=== PATIENT | male | born 2005 | race Caucasian/White ===

== ENCOUNTER 2024-04-01 14:56 | Outpatient (REF) | payer SELFPAY ==
[2024-04-01 16:09] LABS: Abs Immature Grans 0.01 10^3/uL (0.0-0.06); Absolute Basophil Count 0.04 10^3/uL (0.0-0.2); Absolute Eosinophil Count 0.02 10^3/uL (0.0-0.7); Absolute Lymphocyte Count 1.42 10^3/uL (1.2-3.4); Absolute Monocyte Count 0.48 10^3/uL (0.1-0.8); Absolute Neutrophil Count 3.36 10^3/uL (1.2-6.7); Basophils % 0.8 %; Eosinophils % 0.4 %; HCT 46.6 % (40.0-50.0); HGB 15.4 g/dL (13.5-17.5); Immature Grans % 0.2 %; Lymphocytes % 26.6 %; MCH 29.2 pg (27.0-33.0); MCV 88 fL (80-95); MPV 10.7 fL (8.0-11.0); Platelet Count 284 10^3/uL (130-400); RBC 5.27 10^6/uL (4.36-5.78); RDW 12.6 % (11.8-14.1); RDW-SD 41.3 fL; WBC 5.33 10^3/uL (4.4-10.8)
[2024-04-01 16:21] LABS: ALT 40 U/L (16-63); AST 31 U/L (15-37); Albumin 4.8 g/dL (3.4-5.0); Alkaline Phosphatase 108 U/L (46-116); Anion Gap 10.1 mmol/L (3-11); BUN 9 mg/dL (7-18); Bilirubin, Total 1.1 mg/dL (0.2-1.0); CO2 25.9 mmol/L (21.0-32.0); CREATININE 0.7 mg/dL (0.70-1.30); Calcium 9.3 mg/dL (8.5-10.1); Chloride 106 mmol/L (98-107); Estimated GFR 136.12 (mL/min/1.73m2); Glucose 100 mg/dL (74-106); Lipase 28 U/L (16-77); Potassium 4.3 mmol/L (3.5-5.1); Sodium 142 mmol/L (136-145); Total Protein 7.5 g/dL (6.4-8.2)
== END 2024-04-01 14:57 | disposition home or self-care (01) ==
LOC: NCHCN 14:56
PROVIDERS: Visit Provider Emergency Medicine Emergency Medical Services
DX: R11.0 Nausea (principal)
CPT/HCPCS: 80053; 83690; 85025

== ENCOUNTER 2024-04-18 05:40 | Emergency (ER) | payer MEDICAID, SELFPAY ==
[2024-04-18 05:46] VITALS: BP 135/77; PULSE 74; RESP 21; TEMP 36.7; O2SAT 98
--- NOTE | 2024-04-18 06:03 | W.ED.GENAD ---
Discharge Plan Discharge Details Chief Complaint: PsychEval Clinical Impression: Depression ED Provider: Reji Neal Home Meds and New Rx's Prescriptions: No Action No Known Home Meds HPI General Date/Time Provider Initiated Documentation: 04/18/24 05:43. HPI Narrative: This is a 18-year-old male with a past medical history of depression who presents today for evaluation of depression and suicidality. Patient states that for the last 3 he has felt quite a bit more depressed, he has had thoughts of trying to end his life, but he does not have a plan how. One of his coping mechanisms is to just try to stop thinking about it, and this has been helping but has been getting harder and harder. He does occasionally see a counselor. He denies taking any medications. He denies fever or chills, vomiting or diarrhea. He denies auditory hallucinations. He does admit to occasionally seeing tall shadowy figures in the corner of his vision, and states that this has been going on for quite some time. No other complaints at this time. No other modifying factors. He has not been admitted for suicidality in the past. He denies any homicidal ideations. Related Data Home Medications Medication Instructions Recorded Confirmed Unknown [No Known Home Meds] 04/18/24 04/18/24 Allergies Allergy/AdvReac Type Severity Reaction Status Date / Time No Known Allergies Allergy Unverified 04/18/24 05:49 General Stated Complaint: PsychEval MICHAEL: 2 Review of Systems All systems reviewed & are unremarkable except as noted in HPI and below Exam Narrative Exam Narrative: 1.Const: Well-nourished, Well-developed, appearing stated age 2.Eyes: PERRL, no conjunctival injection, and symmetrical lids. 3.ENT: Atraumatic external nose and ears. Moist MM. Neck: Symmetric, trachea midline, No thyromegaly. 4.CVS: +S1/S2, No murmurs or gallops. Peripheral pulses 2+ and equal in all extremities. Brisk capillary refill in all extremities. 5.RESP: Unlabored respiratory effort. Clear to auscultation bilaterally. No wheezes rales or rhonchi 6.GI: Soft, Nontender/Nondistended, No hepatosplenomegaly. No guarding or rebound. 7.MSK: Normocephalic/Atraumatic, Extremities w/o deformity or ttp No cyanosis or clubbing, Normal movement of all extremities 8.Skin: Warm, Dry. No rashes or lesions. 9.Neuro: correctional counselor/case manager II-XII grossly intact. Sensation grossly intact, no focal neurologic deficits. 10.Psych: (AAO) x3. Appropriate mood and affect Course Vital Signs Vital signs: Vital Signs Temperature 37.1 C 04/18/24 05:45 Pulse 84 04/18/24 05:45 Respiratory Rate 20 04/18/24 05:45 Blood Pressure 115/66 04/18/24 05:45 Pulse Oximetry 94 04/18/24 05:45 Temperature 36.7 C 04/18/24 05:46 Temperature Source Temporal Artery Scan 04/18/24 05:46 Pulse 74 04/18/24 05:46 Respiratory Rate 21 04/18/24 05:46 Respiratory Effort Normal, Non-Labored 04/18/24 05:49 Blood Pressure 135/77 04/18/24 05:46 Blood Pressure Position Sitting 04/18/24 05:46 Pulse Oximetry 98 04/18/24 05:46 Oxygen Delivery Method Room Air 04/18/24 05:46 Oxygen Flow Rate 0 04/18/24 05:46 Pain Level 10 04/18/24 05:45 Medical Decision Making This is a 18-year-old male with a past medical history of depression who presents today for evaluation of depression and suicidality. Patient states that for the last 3 he has felt quite a bit more depressed, he has had thoughts of trying to end his life, but he does not have a plan how. One of his coping mechanisms is to just try to stop thinking about it, and this has been helping but has been getting harder and harder. He does occasionally see a counselor. He denies taking any medications. He denies fever or chills, vomiting or diarrhea. He denies auditory hallucinations. He does admit to occasionally seeing tall shadowy figures in the corner of his vision, and states that this has been going on for quite some time. No other complaints at this time. No other modifying factors. He has not been admitted for suicidality in the past. He denies any homicidal ideations. He does admit to nightly marijuana use to help with sleep and depression. Exam demonstrates well-appearing male, no acute abnormalities. Family members at bedside. Will perform medical screening, unless the help of our mental health advocates, monitor closely and reassess. With no active suicidal plan, I do not feel the patient needs to be a one-to-one at this time. 7:04 AM Patient has been seen and assessed by mental health. Patient agrees to inpatient treatment voluntarily. Patient will be transition to zone B, pending placement to psychiatric facility. Patient will be signed out pending final disposition. Quality:SDOH Health Related Social Needs: Health related social needs risk of homeless Health related social needs details Currently residing w/ cousin in Uncle's house, but house is having to be sold [facility] All Active Problems (Updated 04/18/24 @ 07:05 by Reji Neal DO) Depression (Chronic) Social History Smoking/Tobacco Use Status: Never Smoking risk assessment performed?: Yes Alcohol Intake: never Drug use: Daily Substance use type: marijuana Housing: other Do you feel safe at home: Yes Do you feel safe in your relationship?: Yes
[2024-04-18 06:22] LABS: Abs Immature Grans 0.01 10^3/uL (0.0-0.06); Absolute Basophil Count 0.04 10^3/uL (0.0-0.2); Absolute Eosinophil Count 0.06 10^3/uL (0.0-0.7); Absolute Lymphocyte Count 1.66 10^3/uL (1.2-3.4); Absolute Monocyte Count 0.41 10^3/uL (0.1-0.8); Absolute Neutrophil Count 3.43 10^3/uL (1.2-6.7); Basophils % 0.7 %; Eosinophils % 1.1 %; HCT 47.2 % (40.0-50.0); HGB 16.1 g/dL (13.5-17.5); Immature Grans % 0.2 %; Lymphocytes % 29.6 %; MCH 29.7 pg (27.0-33.0); MCHC 34.1 % (32.0-36.0); MCV 87 fL (80-95); MPV 9.9 fL (8.0-11.0); Monocytes % 7.3 %; Neutrophils % 61.1 %; Platelet Count 280 10^3/uL (130-400); RBC 5.42 10^6/uL (4.36-5.78); RDW 12.9 % (11.8-14.1); RDW-SD 41.1 fL; WBC 5.61 10^3/uL (4.4-10.8)
[2024-04-18 06:47] LABS: ALT 34 U/L (16-63); AST 14 U/L (15-37); Albumin 4.6 g/dL (3.4-5.0); Alkaline Phosphatase 109 U/L (46-116); Anion Gap 9.1 mmol/L (3-11); BUN 11 mg/dL (7-18); Bilirubin, Total 1.2 mg/dL (0.2-1.0); CO2 26.9 mmol/L (21.0-32.0); CREATININE 0.9 mg/dL (0.70-1.30); Calcium 9.3 mg/dL (8.5-10.1); Chloride 106 mmol/L (98-107); Estimated GFR 126.17 (mL/min/1.73m2); Glucose 96 mg/dL (74-106); Potassium 3.7 mmol/L (3.5-5.1); Sodium 142 mmol/L (136-145); TSH (W/Ref FT4) 1.55 uIU/mL (0.52-4.13); Total Protein 7.6 g/dL (6.4-8.2)
[2024-04-18 06:48] LABS: Acetaminophen < 2 ug/mL (10-30); ETHANOL BLOOD < 3.0 mg/dL (<10); Salicylate < 2.8 mg/dL (<2.8)
[2024-04-18 08:54] LABS: *AMPHETAMINES SCREEN URINE Negative (Negative); *BARBITURATES SCREEN URINE Negative (Negative); *BENZODIAZEPINES SCREEN URINE Negative (Negative); Cannabinoids THC Positive (Negative); Cocaine Screen,Urine Negative (Negative); METHADONE URINE SCREEN Negative (Negative); OPIATES URINE SCREEN Negative (Negative)
[2024-04-18 08:58] LABS: Tricyclic Antidepressants Negative (Negative)
--- NOTE | 2024-04-18 09:08 | CMSP_ITS ---
Date of service: 04/18/24 Time of Service: 09:08 Care Management Safety Plan Status Status: Voluntary Reason for Wait Reason for Wait: Inpatient Admission Safety Plan Safety Plan: VOLUNTARY FOR INPATIENT PSYCHIATRIC STABILIZATION.? Patient is appropriate in all interactions since arriving at [facility]; Pt has demonstrated appropriate coping and communication skills, has articulated his needs and concerns and is fully engaged during staff interactions. Safety plan has been established with patient, and care team, to adhere to patient goals, identify restrictions based on behavioral status, address nutrition, and determine allowed personal belongings, tools for hygiene and personal care. Determine level of activity including ambulation, level of supervision, visitors, and determine privileges based on behaviors and level of engagement by pt. Adrian is a 18 year old make that present to the ED with Depression and SI. He is seeking voluntary inpatient treatment at an accepting facility. [facility] are interested, pending insurance verification. Unfortunately, Adrian has been employed for 2 weeks and does not have insurance. CHW at [facility] has supported Adrian with an expedited medicaid application through [employer]. Discharge delay is anticipated while medicaid is pending. SAFETY PLAN: 1. Will remain on suicide precautions, in paper clothes 2. Will remain in Zone B under direct supervision of one-on-one staff at all times provided by [employer]; TANYA, HOLTER TECHNICIAN garbage collection supervisor. 3. May have paper cups, plates, finger foods as well as a cardboard spoon with which to eat meals. 4. Follow [facility] Management of the Admitted Behavioral Health Patient policy. 5. Shower available in Zone B without restriction. 6. Personal belongings-soft items permitted at RN discretion. 7. Visitors- parents permitted, at RN discretion. 8. Activities: soft cart items approved per RN discretion. 9.? Bathroom available in Zone B without restriction. 10. Phone: incoming/outgoing calls limited to [facility] cordless phone at RN discretion. Due to VOLUNTARY status, if patient wishes to leave [facility], staff will contact [facility] Crisis Screener ([phone]) and [facility] ([phone]) as soon as possible. In the event of elopement, notify [facility] Police ([phone]). Patient is currently voluntarily at [facility] and seeking inpatient admission when a bed becomes available. [facility] Frontline Garbage Collector Supervisor will continue seeking placement. Please contact the [facility] ([phone]) and [facility] Garbage Collector Supervisor ([phone]) for any needed changes in the Safety Plan. Safety plan has been provided to interdepartmental care team.
--- NOTE | 2024-04-18 10:54 | MHPN_ITS ---
Date of service: 04/18/24 Time of Service: 10:54 Mental Health Emergency Note Release [facility] release signed:: Yes Reason for Visit The client is not known to [facility] and has agreed to partake in an intake today. He was initially screened by [facility] early tis am. This will be the client's first hospitalization. The client presented with an increase in symptoms relating to a possible depression diagnosis. He is also experiencing SI although not at the time of the assessment he noted if he were to be alone for to long of a time he would go back to having those thoughts. In the last 2 weeks has the pt presented for ES prior to today?: Unknown Client Information Client is: New Impression The client reported that he has made plans in the past to by suicide however attempts have not ever been made. The client participated in all screening tools to include the CSSRS however, this clinician is not CAM's trained so that treatment could not be offered during this assessment. The client will be meeting with [facility] today to get set up with Medicaid as he is currently self pay. The client is a single, male who is currently residing with family in the area after he lost both of his parents. He reported that he feels guilty about his mother's . He uses He/Hi pronouns and is currently unemployed and has no treatment providers in the area as he came up for his parent's services. All underrepresented categories were honored during this assessment. The client presents sitting on his bed in Zone B. In the room with him are JONATAN Ram and Dilma. This clinician participated via zoom due to training responsibilities today. The client is soft spoken and makes fair eye contact. He has shoulder length brown wavy hair. He presents with a sad affect and reports that he struggles to talk in detail about his feelings. He reported what little sleep he got t his am was not restful. He reported that he is hungry but did not eat breakfast this am. He shared I'm depressed and don't want to be here anymore. He has been reading [employer] book as a distraction. Plan/Disposition Recommended Disposition: Hospitalization facilities contacted. Plan[facility] patient however, they both require insurance before they can accept him. This clinician outreached to [facility] in care management to connect him with [facility] to get that set up. The client will remain at [facility] pending acceptance to a treating hospital. Person reported agreement to plan: Yes Facilities contacted if Applicable [facility] Not [facility], (waiting on insurance ) Other [facility] Not accepted, No bed available Not accepted, (Did not receive referral will be resent. ) Other, [facility] Not accepted, No bed available [facility] Not accepted, (waiting on insurance ) Other Reports/communication Outcome discussed with: ED/Personnel
--- NOTE | 2024-04-18 16:53 | ED.PROG_ITS ---
Date of service: 04/18/24 Time of Service: 16:53 Medical Decision Making Care signed out by Dr. Neal earlier today. Please see his documentation regarding initial ED presentation course. Briefly this 18-year-old male is here voluntarily for suicidal ideation. He has been medically screened and cleared. He is awaiting inpatient psychiatric treatment placement. No concerns during shift. Nursing notes [facility] may potentially accept patient in transfer. Awaiting doc to doc. Quality:SDOH Health Related Social Needs: Health related social needs risk of homeless Health related social needs details Currently residing w/ cousin in Uncle's house, but house is having to be sold Sign Out Sign Out Data: Sign Out Comment: Depression, suicidality without a plan. Here voluntarily, awaiting placement Last updated by Reji Neal DO at 04/18/24 07:20 Discharge Plan Discharge Details Chief Complaint: PsychEval Clinical Impression: Depression Primary Care Provider: None,None ED Provider: Gallito Hunter Home Meds and New Rx's Prescriptions: No Action No Known Home Meds
--- NOTE | 2024-04-18 17:41 | W.EDPROG ---
Date of service: 04/18/24 Time of Service: 17:41 Medical Decision Making 18-year-old male here for voluntarily for depression and thoughts of self-harm. No issues reported per prior shift. Currently calm without new acute complaints. Will continue to observe until safe disposition found Quality:SDOH Health Related Social Needs: Health related social needs risk of homeless Health related social needs details Currently residing w/ cousin in Uncle's house, but house is having to be sold Sign Out Sign Out Data: Sign Out Comment: Depression, suicidality without a plan. Here voluntarily, awaiting placement Last updated by Reji Neal DO at 04/18/24 07:20 Sign Out Comment: Patient is here voluntarily for suicidality. Potential accepting facility [facility] identified. Awaiting doc to doc. Last updated by Gallito Hunter MD at 04/18/24 17:07 Discharge Plan Discharge Details Chief Complaint: PsychEval Clinical Impression: Depression Primary Care Provider: None,None ED Provider: Kin Siddiqui Home Meds and New Rx's Prescriptions: No Action No Known Home Meds
--- NOTE | 2024-04-19 09:26 | NUR.NOTE ---
Addendum entered by Daisy Valle 04/19/24 09:56: Accessed chart a second time, Deidra Carmichael called asking for the time of transfer. Original Note: [facility] called asking if this patient was still in need of admission. Accessed chart determined that patient was transferred to [facility]. Nursing Note:
== END 2024-04-18 19:05 ==
PROVIDERS: Student in an Organized Health Care Education/Training Program; Emergency Provider Emergency Medicine
DX: F32.A Depression, unspecified (principal); R45.851 Suicidal ideations
CPT/HCPCS: 00123; 80053; 80307; 99285; 80320; 80329; 84443; 85025

== ENCOUNTER 2024-11-25 04:00 | Outpatient (CLI) | payer MEDICAID, SELFPAY ==
[2024-11-25 14:10] LABS: Anion Gap 4.5 mmol/L (3-11); BUN 12 mg/dL (7-18); CO2 32.5 mmol/L (21.0-32.0); CREATININE 0.9 mg/dL (0.70-1.30); Chloride 107 mmol/L (98-107); Estimated GFR 125.39 (mL/min/1.73m2); Glucose 84 mg/dL (74-106); Sodium 144 mmol/L (136-145)
[2024-11-25 14:17] LABS: Calcium 9.3 mg/dL (8.5-10.1)
== END 2024-11-25 04:01 | disposition home or self-care (01) ==
LOC: LBO 04:00
PROVIDERS: PCP Nurse Practitioner Family; Visit Provider Physician Assistant
DX: F64.9 Gender identity disorder, unspecified (principal)
CPT/HCPCS: 36415; 80048

== ENCOUNTER 2025-01-14 03:45 | Outpatient (CLI) | payer MEDICAID, SELFPAY ==
[2025-01-14 15:10] LABS: Anion Gap 9.3 mmol/L; BUN 10 mg/dL; CO2 26.7 mmol/L; Calcium 9.4 mg/dL; Chloride 109 mmol/L; Glucose 86 mg/dL; Potassium 3.8 mmol/L; Sodium 145 mmol/L
[2025-01-14 22:25] LABS: Estradiol 51 pg/mL
[2025-01-20 14:10] LABS: Testosterone, Total 494 ng/dL
== END 2025-01-14 03:46 | disposition home or self-care (01) ==
LOC: LBO 03:45
PROVIDERS: PCP Nurse Practitioner Family; Visit Provider Physician Assistant
DX: F64.9 Gender identity disorder, unspecified (principal)
CPT/HCPCS: 36415; 80048; 84403; 82670

== ENCOUNTER 2025-04-14 02:09 | Outpatient (CLI) | payer MEDICAID, SELFPAY ==
[2025-04-14 14:00] LABS: Anion Gap 7.8 mmol/L; BUN 17 mg/dL; CO2 26.2 mmol/L; CREATININE 0.6 mg/dL; Calcium 9.1 mg/dL; Chloride 105 mmol/L; Glucose 100 mg/dL; Potassium 3.7 mmol/L; Sodium 139 mmol/L
[2025-04-14 22:44] LABS: Estradiol 69 pg/mL
[2025-04-18 13:34] LABS: Testosterone, Total 210 ng/dL
== END 2025-04-14 02:10 | disposition home or self-care (01) ==
PROVIDERS: PCP Nurse Practitioner Family; Visit Provider Physician Assistant
DX: F64.9 Gender identity disorder, unspecified (principal)
CPT/HCPCS: 36415; 80048; 84403; 82670

== ENCOUNTER 2025-06-18 17:16 | Emergency (ER) | payer MEDICAID, SELFPAY ==
[2025-06-18 17:18] VITALS: BP 155/91; PULSE 86; RESP 16; TEMP 208.4; TEMP 98; O2SAT 97
[2025-06-18 17:36] VITALS: BP 155/91; PULSE 86; RESP 16; TEMP 208.4; TEMP 98; O2SAT 97
[2025-06-18] MEDS: Prochlorperazine 10 MG TAB PO (17:41)
[2025-06-18] MEDS: Normal Saline 1,000 ML 1000 ML IV (18:44)
[2025-06-18] MEDS: diphenhydrAMINE 50 MG/ML VIAL 25 MG IVP (18:45)
[2025-06-18] MEDS: Ondansetron 4 MG/2 ML VIAL IVP (18:45)
--- NOTE | 2025-06-18 19:09 | W.ED.GENAD ---
Discharge Plan Disposition Patient Disposition: Home Condition: Stable Discharge Details Clinical Impression: Nausea & vomiting Primary Care Provider: Marcy Segovia ED Provider: Radha Yan Home Meds and New Rx's Prescriptions: New ondansetron 4 mg tablet,disintegrating 4 mg PO TID PRN3 Days Qty: 10 0RF Continued naproxen 250 mg tablet 250 mg PO BID PRN spironolactone 100 mg tablet 200 mg PO DAILY estradiol 2 mg tablet 6 mg PO DAILY sertraline 100 mg tablet 100 mg PO DAILY Qty: 90 1RF hydroxyzine HCl 25 mg tablet See Rx Instructions PO QHS PRN (Reason: insomnia) Qty: 180 1RF Rx Instructions: Take 1 - 2 tabs orally every day at bedtime PRN; Discharge Instructions Instructions: Nausea and Vomiting, Adult ED Additional Instructions: take zofran as needed for nausea and vomiting popsicles, jello, broth, gingerale bland food such as toast and bananas when able to tolerate clear liquids return with persistent, new, or worsening symptoms Referrals: Marcy Segovia NP [Primary Care Provider, Medicine] Discharge Data Discharge Date/Time-TO BE ENTERED AT DEPARTURE: 06/18/25 20:01 HPI General Date/Time Provider Initiated Documentation: 06/18/25 17:27. HPI Narrative: 19-year-old transgender female with nausea and vomiting after dental extraction with Novocain. Suspected adverse reaction to lidocaine derivatives. Vomited once since onset. Extraction once today had a similar episode several weeks ago when she had another extraction denies any blood in vomitus denies any diarrhea Related Data Home Medications ?Medication ?Instructions ?Recorded ?Confirmed naproxen 250 mg tablet 250 mg PO BID PRN 06/10/24 06/18/25 hydroxyzine HCl 25 mg tablet See Rx Instructions PO QHS PRN 12/25/24 06/18/25 insomnia #180 tabs spironolactone 100 mg tablet 200 mg PO DAILY 02/12/25 06/18/25 sertraline 100 mg tablet 100 mg PO DAILY #90 tabs 02/26/25 06/18/25 estradiol 2 mg tablet 6 mg PO DAILY 04/28/25 06/18/25 ondansetron 4 mg disintegrating 4 mg PO TID PRN 3 days #10 tabs 06/18/25 tablet Previous Rx's ?Medication ?Instructions ?Recorded hydroxyzine HCl 25 mg tablet See Rx Instructions PO QHS PRN 12/25/24 insomnia #180 tabs sertraline 100 mg tablet 100 mg PO DAILY #90 tabs 02/26/25 ondansetron 4 mg disintegrating 4 mg PO TID PRN 3 days #10 tabs 06/18/25 tablet Allergies Allergy/AdvReac Type Severity Reaction Status Date / Time procaine (From Novocain) AdvReac Mild Nausea Verified 06/18/25 17:24 General Stated Complaint: DentalOral MICHAEL: 3 Exam Narrative Exam Narrative: No acute distress, alert and oriented. Dental extraction site benign. Oropharynx patent, uvula midline, lungs clear, no rashes or lesions. No evidence of anaphylaxis or significant allergic reaction. Course Vital Signs Vital signs: Vital Signs Temperature 98.0 C 06/18/25 17:18 Pulse 86 06/18/25 17:18 Respiratory Rate 16 06/18/25 17:18 Blood Pressure 155/91 06/18/25 17:18 Pulse Oximetry 97 06/18/25 17:18 Temperature 98.0 C 06/18/25 17:36 Temperature Source Oral 06/18/25 17:18 Pulse 86 06/18/25 17:36 Respiratory Rate 16 06/18/25 17:36 Blood Pressure 155/91 06/18/25 17:36 Blood Pressure Position Sitting 06/18/25 17:36 Pulse Oximetry 97 06/18/25 17:36 Oxygen Delivery Method Room Air 06/18/25 17:18 Oxygen Flow Rate 0 06/18/25 17:18 Medical Decision Making Initial Assessment: 19-year-old transgender female with nausea and vomiting post dental extraction with Novocain. Possible adverse reaction to lidocaine derivatives. ED Course: - Administered oral Compazine initially. - Episode of vomiting after oral Compazine. - Administered i.v. Zofran and Benadryl. - Marked improvement noted. - Patient able to tolerate p.o. - Zofran prescribed for home use. - Slightly elevated blood pressure observed. - Return precautions reviewed and patient expressed understanding. Final Assessment: Patient showed marked improvement after administration of i.v. Zofran and Benadryl. Slightly elevated blood pressure observed. Zofran prescribed for home use. Clinical Impression: - Nausea and vomiting post dental extraction with Novocain. - Possible adverse reaction to lidocaine derivatives. Disposition: - Discharged home in stable condition. - Follow-Up: Advised to recheck blood pressure with doctor this week. MDM Components Evaluation: - Number of Differential Diagnoses or Management Options: Possible adverse reaction to lidocaine derivatives. - Amount and Complexity of Data Reviewed: Administered oral Compazine, i.v. Zofran, and Benadryl. - Risk of Complication and Morbidity or Mortality: Slightly elevated blood pressure observed. Quality:SDOH Health Related Social Needs: Health related social needs details provider aware PFSH All Active Problems (Updated 06/18/25 @ 19:38 by JEANA Espinal) Nausea & vomiting (Acute) History of arthroplasty of left knee (Acute) Status post left knee arthroscopy with lateral patellofemoral retinacular release on October 20, 2024, done at [facility] Auditory hallucinations (Acute) Insomnia (Acute) [id number] transgender person (Acute) Major depressive disorder (Chronic) Medical History Personal history of nonsuicidal self-harm 05/02/24 Cutting: Per [facility]. -hb History of suicidal ideation 05/02/24 Per [facility]. -hb Family History Mother , age 41 Depression Diabetes Hyperlipidemia Hypertension Father , age 45 Alcohol use disorder Depression Sister Depression Maternal Grandfather Heart disease Colon cancer Diabetes Paternal Grandmother Alcohol use disorder Social History Smoking/Tobacco Use Status: Never Second Hand Exposure: Yes Smoking risk assessment performed?: Yes Alcohol Intake: former Drug use: Daily Substance use type: marijuana Counseling given: No Adopted: No Caregiver/Support person: No Household members: family Housing: house Number of Children: 0 Communication Needs: None Education Level: high school Do you need help understanding health information?: Rarely current occupation: Human Services Professional Pets and animals: Yes Sexually active: No Do you think of yourself as: bisexual Current gender identity: trans [id number] What is your relationship status?: never How often do you talk on the phone with friends or family?: once per week How often do you get together with friends or relatives?: three or more times per week How often do you attend islam or restorationism services?: decline to answer Do you belong to any clubs or organized social groups?: no Panel score (0-1 are the most socially isolated patients): 1 What type of physical activity do you participate in: walking Duration: 60-90 minutes/day Frequency: 5-6 times per week Roxie/Pentecostalism: Non yarsani Special roxie needs: No Seatbelt use: always Helmet use: Yes Helmet use: always Drive intox or ride w/intox dolly driver: No Firearms in home: Yes Firearms unloaded and locked: Yes Do you feel safe at home: Yes Do you feel safe in your relationship?: Yes Victim of physical abuse: No Victim of emotional abuse: No Victim of sexual abuse: No
== END 2025-06-18 20:01 | disposition home or self-care (01) ==
PROVIDERS: Emergency Provider Physician Assistant; PCP Nurse Practitioner Family
DX: R11.2 Nausea with vomiting, unspecified (principal); K08.89 Other specified disorders of teeth and supporting structures; Z98.818 Other dental procedure status
CPT/HCPCS: 96374; 96375; 99284; 99283; J1200; J2405

== ENCOUNTER 2025-08-12 04:02 | Outpatient (CLI) | payer MEDICAID, SELFPAY ==
[2025-08-12 13:54] LABS: Anion Gap 6.9 mmol/L; BUN 9 mg/dL; CO2 30.1 mmol/L; Calcium 9.1 mg/dL; Chloride 104 mmol/L; Glucose 84 mg/dL; Potassium 3.7 mmol/L; Sodium 141 mmol/L
== END 2025-08-12 04:03 | disposition home or self-care (01) ==
PROVIDERS: PCP Nurse Practitioner Family; Visit Provider Physician Assistant
DX: F64.9 Gender identity disorder, unspecified (principal)
CPT/HCPCS: 36415; 80048; 84403; 82670

== ENCOUNTER 2025-11-02 01:41 | Outpatient (CLI) | payer MEDICAID, SELFPAY ==
[2025-11-02 13:54] LABS: Hemoglobin A1C 4.6 % (<5.7)
[2025-11-02 13:58] LABS: Cholesterol 152 mg/dL (<200); HDL Cholesterol 52 mg/dL (>or=40)
[2025-11-02 18:30] LABS: ALT 23 U/L (10-49); AST 20 U/L (<34); Albumin 4.7 g/dL (3.2-5.0); Alkaline Phosphatase 82 U/L (46-116); Anion Gap 8.2 mmol/L (3-11); BUN 15 mg/dL (9-23); Bilirubin, Total 0.6 mg/dL (0.2-1.2); CO2 28.8 mmol/L (20.0-31.0); Calcium 9.6 mg/dL (8.3-10.6); Chloride 104 mmol/L (98-107); Glucose 73 mg/dL (74-106); Potassium 4.5 mmol/L (3.5-5.1); Sodium 141 mmol/L (136-145); Total Protein 7.4 g/dL (5.7-8.2)
[2025-11-03 09:55] LABS: HIV-1/2 Ag & Ab Screen Negative (Negative)
[2025-11-03 10:04] LABS: Hep A Total Ab w Rflx IgM Positive (Negative)
[2025-11-03 10:18] LABS: Hepatitis C Ab w Rflx HCV PCR Negative (Negative)
[2025-11-03 11:06] LABS: Syphilis Serology (RPR) Negative (Negative)
[2025-11-04 10:32] LABS: HSV Type 2 Ab, IgG Negative (Negative)
== END 2025-11-02 01:42 | disposition home or self-care (01) ==
LOC: LBO 01:41
PROVIDERS: PCP Nurse Practitioner Family; Visit Provider Physician Assistant
DX: Z00.00 Encounter for general adult medical examination without abnormal findings (principal); Z11.3 Encounter for screening for infections with a predominantly sexual mode of transmission; F32.9 Major depressive disorder, single episode, unspecified; G47.00 Insomnia, unspecified; Z78.9 Other specified health status; F64.9 Gender identity disorder, unspecified
CPT/HCPCS: 36415; 80053; 80061; 84403; 86709; 86803; 87340; 87389; 82670; 83036; 86592; 86695; 86696